=== PATIENT | male | born 2005 | race Caucasian/White ===

== ENCOUNTER 2025-08-21 03:37 | Emergency (ER) | payer BC ==
[2025-08-21] MEDS ORDERED: Bacitracin 1 PK ONE (03:53)
== END 2025-08-21 04:00 | disposition home or self-care (01) ==
LOC: CSHERS 03:37
DX: T24.201A Burn of second degree of unspecified site of right lower limb, except ankle and foot, initial encounter (principal); X03.0XXA Exposure to flames in controlled fire, not in building or structure, initial encounter
CPT/HCPCS: 16020; 99283